=== PATIENT | male | born 1985 | race Two or more races ===

== ENCOUNTER 2018-05-01 23:33 | Emergency (ER) | payer SELFPAY ==
[~2018-05-01] VITALS: Ht 172.7 cm; Wt 95.3 kg
[2018-05-02 00:20] VITALS: BP 148/77
[2018-05-02] MEDS ORDERED: AMOX875T PO (00:48)
[2018-05-02] MEDS ORDERED: ONDA4TAB12 PO (00:48)
[2018-05-02] MEDS ORDERED: OFLO5DRO7 EACH EAR (00:48)
--- NOTE | 2018-05-02 00:49 | PHYS DOC ---
Past Medical History Past Medical History: No Pertinent History Past Surgical History: No Surgical History Alcohol Use: None Drug Use: None Adult General Chief Complaint Chief Complaint: FEVER HPI HPI Patient is a 32 year old male with no significant medical history who presents today ED today complaining of fever, bilateral ear pain, cough, symptoms began yesterday, also complaining of vomiting most of it post tussis. Denies any abdominal pain. She denies any nasal congestion. Review of Systems Review of Systems Constitutional: Reports fever Eyes: Denies change in visual acuity, redness, or eye pain [] HENT: Reports bilateral ear pain. Denies nasal congestion or sore throat [] Respiratory: Reports cough or shortness of breath [] Cardiovascular: No additional information not addressed in HPI [] GI: Reports posttussis emesis. Denies abdominal pain, bloody stools or diarrhea [] : Denies dysuria or hematuria [] Musculoskeletal: Denies back pain or joint pain [] Integument: Denies rash or skin lesions [] Neurologic: Denies headache, focal weakness or sensory changes [] All other systems were reviewed and found to be within normal limits, except as documented in this note. Allergies Allergies Allergies Coded Allergies Type Severity Reaction Last Updated Verified No Known Drug Allergies 05/02/18 No Physical Exam Physical Exam Constitutional: Well developed, well nourished, no acute distress, non-toxic appearance. [] HENT: Normocephalic, atraumatic, bilateral external ears normal, oropharynx moist, no oral exudates, nose normal. [] Bilateral TM are moderately injected, the ear canal is erythematous and has small amount of exudate. Eyes: PERRLA, EOMI, conjunctiva normal, no discharge. [] Neck: Normal range of motion, no tenderness, supple, no stridor. [] Cardiovascular:Heart rate regular rhythm, no murmur [] Lungs & Thorax: Bilateral breath sounds clear to auscultation [] Abdomen: Bowel sounds normal, soft, no tenderness, no masses, no pulsatile masses. [] Skin: Warm, dry, no erythema, no rash. [] Back: No tenderness, no CVA tenderness. [] Extremities: No tenderness, no cyanosis, no clubbing, ROM intact, no edema. [] Neurologic: Alert and oriented X 3, normal motor function, normal sensory function, no focal deficits noted. [] Psychologic: Affect normal, judgement normal, mood normal. [] Current Patient Data Vital Signs Vital Signs Date Time Temp Pulse Resp B/P (MAP) Pulse Ox O2 Delivery O2 Flow Rate FiO2 05/02/18 00:20 100.7 98 12 148/77 (100) 94 Room Air 100.7 EKG EKG [] Radiology/Procedures Radiology/Procedures [] Course & Med Decision Making Course & Med Decision Making Pertinent Labs and Imaging studies reviewed. (See chart for details) This is a 32-year-old male patient presenting to the ED today with otitis media , otitis externa, cough and a fever. Patient was discharged with Oflaxacin, amoxicillin, Tylenol and Motrin for pain or fever. Follow-up with the ENT in 1- 2 weeks. Dragon Disclaimer Dragon Disclaimer This electronic medical record was generated, in whole or in part, using a voice recognition dictation system. Departure Departure Impression: Primary Impression: Fever Additional Impressions: Otitis media Otitis externa Cough Disposition: HOME, SELF-CARE Condition: STABLE Referrals: NO PCP (PCP) IFTIKHAR RICHARDS MD follow up in 1-2 weeks Patient Instructions: Cough, Child, [id number], Fever, Child, Otitis Externa , Otitis Media, Adult, [id number] Additional Instructions: You were evaluated in the emergency room and noted to have ear infection use the medications provided as ordered. Ensure you complete your oral antibiotics. Take Tylenol every 4 hours and Motrin every 6 hours as needed for fever or pain. Follow-up with the provided ENT specialist or your own doctor in 1-2 weeks. Scripts Ofloxacin (OFLOXACIN) 5 Ml Drops 5 DROP EACH EAR BID, #10 ML Prov: JAMEE MARQUEZ ANIMAL CYTOLOGIST 05/02/18 Amoxicillin (AMOXICILLIN) 875 Mg Tablet 1 TAB PO BID, #14 TAB Prov: MUTUNGA,JAMEE ANIMAL CYTOLOGIST 05/02/18 Ondansetron (ONDANSETRON ODT) 4 Mg Tab.rapdis 1 TAB PO PRN Q6-8HRS, #16 TAB Prov: MUTUNGAJAMEE ANIMAL CYTOLOGIST 05/02/18 Problem Qualifiers Primary Impression: Fever Fever type: unspecified Qualified Codes: R50.9 - Fever, unspecified Additional Impressions: Otitis media Otitis media type: other nonsuppurative Chronicity: acute Laterality: bilateral Recurrence: not specified as recurrent Qualified Codes: H65.193 - Other acute nonsuppurative otitis media, bilateral Otitis externa Otitis externa type: other infective Chronicity: acute Laterality: bilateral Qualified Codes: H60.393 - Other infective otitis externa, bilateral MUTUNGA,JAMEE ANIMAL CYTOLOGIST May 02, 2018 00:49
[2018-05-02] MEDS: IBUPROFEN 400 MG TABLET. PO ONE (01:12)
[2018-05-02] MEDS: HYDROcodone/APAP 5/325MG 1 TAB TABLET PO ONE (01:13)
[2018-05-02] MEDS ORDERED: ACETAMINOPHEN 500 MG TABLET PO ONE (01:30)
== END 2018-05-02 01:15 | disposition home or self-care (01) ==
LOC: ER 23:33
DX: H60.393 Other infective otitis externa, bilateral (principal); H65.193 Other acute nonsuppurative otitis media, bilateral; R50.9 Fever, unspecified; R05 Cough; R06.02 Shortness of breath; R11.10 Vomiting, unspecified
CPT/HCPCS: 99283